=== PATIENT | male | born 1995 | race Caucasian/White ===

== ENCOUNTER 2020-06-10 13:15 | Emergency (ER) | payer OTHER, SELFPAY ==
--- NOTE | ~2020-06-10 | XR_ITS ---
EXAMINATION: XR hand LT min 3V INDICATION: Left hand pain and laceration TECHNIQUE: Three views of the left hand are obtained. COMPARISON: None available FINDINGS: There are soft tissue defects involving the tips of the second through fourth fingers. No d efinite associated osseous abnormality is identified. The joint spaces are normal. Bone alignment is maintained. IMPRESSION: 1. Soft tissue defects in the tips of the second through fourth fingers without definite evidence of underlying osseous abnormality. Reviewed, dictated and finalized at location A. [facility]
[2020-06-10 13:18] VITALS: BP 160/76; PULSE 57; RESP 18; TEMP 36.4; O2SAT 99
[2020-06-10] MEDS: HYDROcodone/acetaminophen (*CRX) 10-325 MG TABLET 1 TAB PO (14:35)
[2020-06-10] MEDS: LIDOCAINE, EPINEPHRINE, TETRACAINE VISCOUS SOLN 3 ML TOPICAL (14:36)
--- NOTE | 2020-06-10 15:52 | ED.GENADULT ---
HPI - General Adult General Chief complaint: Extremity Injury, Upper Stated complaint: left hand laceration Time Seen by Provider: 06/10/20 13:49 Source: patient Mode of arrival: ambulatory Limitations: no limitations History of Present Illness HPI narrative: Patient is a 24-year-old male who presents to emergency department with tablesaw injuries to the left hand patient notes aching pain to the distal tips of the second through fourth digits where he has sustained laceration skin avulsions patient notes his tetanus is up-to-date has not taken anything for pain Related Data Allergies Allergy/AdvReac Type Severity Reaction Status Date / Time No Known Allergies Allergy Verified 06/10/20 13:23 Review of Systems Review of Systems: All systems reviewed & are unremarkable except as noted in HPI and below PMFSH Social History Social History (Updated 06/10/20 @ 15:53 by Americo Suarez PA-C) Smoking status: Never smoker Gender identity (if verbalized by the patient): Male Exam Narrative: Exam Narrative: GENERAL: Well-appearing, well-nourished, and in no acute distress. HEAD: Normocephalic, atraumatic. EYES: PERRLA and EOMI. ENT: Nares clear, no rhinorrhea or epistaxis. Mucous membranes moist. EXTREMITIES: Normal range of motion. No edema. Irregular skin avulsions to the distal tips of the second through fourth digits third and fourth digits with half centimeter laceration palmar aspect SKIN: Warm, dry, no rash. NEURO: No focal deficits. Alert and oriented x3. Neurovascularly intact PSYCH: Normal mood and affect. Course Course Emergency Course: Patient's wounds were cleaned and dressed in the emergency department 2 of the wounds required closure Vital Signs Vital signs: Vital Signs Temperature 97.6 F 06/10/20 13:18 Pulse Rate 57 L 06/10/20 13:18 Respiratory Rate 18 06/10/20 13:18 Blood Pressure 160/76 H 06/10/20 13:18 Pulse Oximetry 99 06/10/20 13:18 Temperature 97.6 F 06/10/20 13:18 Pulse Rate 57 L 06/10/20 13:18 Respiratory Rate 18 06/10/20 13:18 Blood Pressure 160/76 H 06/10/20 13:18 Pulse Oximetry 99 06/10/20 13:18 Procedures Laceration Laceration 1: Date: 06/10/20 Time: 15:54 Site: upper extremity Side (If applicable): left Size (cm): 0.5 Description: irregular Depth: simple, single layer Local Anesthetic: lidocaine 1% Pre-repair: wound explored, irrigated and irrigated extensively ====== Skin Level ====== Skin layer closed with: nylon Size (cm): 5-0 Number of sutures: 1 Technique: simple, interrupted ====== Subcutaneous Layer ====== ====== Muscle Layer ====== ====== Tendon Layer ====== Dressing: Wound required 1 suture nonadhesive antibiotic 4 x 4 and Coban placed post procedure neurovascularly intact pre and post procedure Laceration 2: Date: 06/10/20 Time: 15:55 Site: upper extremity Side (If applicable): left Size (cm): 0.5 Description: linear Depth: simple, single layer Local Anesthetic: lidocaine 1% Pre-repair: wound explored ====== Skin Level ====== Skin layer closed with: nylon Size (cm): 4-0 Technique: simple, interrupted ====== Subcutaneous Layer ====== ====== Muscle Layer ====== ====== Tendon Layer ====== Dressing: Antibiotic ointment nonadhesive 4 x 4 and Coban placed post procedure neurovascularly intact pre and post procedure Other Procedure Procedure 1: Other Procedure: Patient's wounds were cleaned and prepped with Shur-Clens scrub with lidocaine digital block to the second through fourth digits Medical Decision Making MDM Narrative Medical decision making narrative: Patient presented with laceration skin avulsions of the phalanxes which were repaired in the emergency department dressed will be discharged home with medicati
== END 2020-06-10 16:08 | disposition home or self-care (01) ==
PROVIDERS: Emergency Provider Emergency Medicine; PCP Family Medicine
DX: S61.211A Laceration without foreign body of left index finger without damage to nail, initial encounter (principal); S61.213A Laceration without foreign body of left middle finger without damage to nail, initial encounter; S61.215A Laceration without foreign body of left ring finger without damage to nail, initial encounter; W31.2XXA Contact with powered woodworking and forming machines, initial encounter
CPT/HCPCS: 12001; 73130; 99283; A9270